=== PATIENT | female | born 1965 | race Caucasian/White ===

== ENCOUNTER 2018-02-17 14:12 | Emergency (ER) | payer OTHER ==
[2018-02-17] MEDS ORDERED: DEXAMETHASONE SOD PHOSPHATE 10 MG/ML 1 ML VIAL IM STA (16:41)
[2018-02-17] MEDS ORDERED: HYDROcodone/APAP 5-325MG 1 EACH TAB PO STA (16:41)
--- NOTE | 2018-02-17 17:05 | ED ---
General Adult HPI - General Chief complaint: Extremity Problem,Nontraumatic Stated complaint: leg & foot numbness Time Seen by Provider: 02/17/18 16:09 Source: patient, RN notes reviewed, old records reviewed Mode of arrival: ambulatory Limitations: no limitations - History of Present Illness Initial comments: This is a 52-year-old female to the ER for evaluation. She does presents today for evaluation regards to right foot pain right leg leg pain, neurological pain. Patient has history of lumbar disease scoliosis pop discs. Symptoms began during long [place] ride and [place] Patient states that during the ride she began to have severe right leg pain. The pain is acute upper right leg alone is improved now. Patient denies any trauma. No loss of bowel or bladder. - Related Data Home Medications Medication Instructions Recorded Confirmed Acetaminophen [Tylenol Extra 1,000 mg PO Q6H PRN 02/17/18 02/17/18 Strength] Albuterol Inhaler [Ventolin Hfa 1 - 2 puff INHALATION RT-Q6H PRN 02/17/18 Inhaler] Benazepril/Hydrochlorothiazide 1 tab PO DAILY 02/17/18 02/17/18 [Lotensin Hct 20-25 mg Tablet] Levothyroxine Sodium [Synthroid] 50 mcg PO DAILY 02/17/18 02/17/18 Loratadine [Claritin] 10 mg PO DAILY 02/17/18 02/17/18 Allergies Allergy/AdvReac Type Severity Reaction Status Date / Time bacitracin Allergy Rash/Hives Verified 02/17/18 16:10 [From Neosporin ([id number])] bee venom protein (honey bee) Allergy Swelling Verified 02/17/18 16:10 dextrose [From Emetrol] Allergy Rash/Hives Verified 02/17/18 16:10 fructose [From Emetrol] Allergy Rash/Hives Verified 02/17/18 16:10 neomycin Allergy Rash/Hives Verified 02/17/18 16:10 [From Neosporin ([id number])] phosphoric acid,diluted Allergy Rash/Hives Verified 02/17/18 16:10 [From Emetrol] polymyxin B Allergy Rash/Hives Verified 02/17/18 16:10 [From Neosporin ([id number])] ciprofloxacin [From Cipro] AdvReac Nausea & Verified 02/17/18 16:10 Vomiting sulfamethoxazole AdvReac Nausea & Verified 02/17/18 16:10 [From Bactrim] Vomiting trimethoprim [From Bactrim] AdvReac Nausea & Verified 02/17/18 16:10 Vomiting Review of Systems ROS Statement: Those systems with pertinent positive or pertinent negative responses have been documented in the HPI. ROS Other: All systems not noted in ROS Statement are negative. Past Medical History Past Medical History: Asthma, Hypertension, Thyroid Disorder Additional Past Medical History / Comment(s): chronic back pain/issues, interstitial cystitis, IBS, hiatial hernia, History of Any Multi-Drug Resistant Organisms: None Reported Past Surgical History: Back Surgery, Bladder Surgery, Cholecystectomy, Hysterectomy, Tonsillectomy Additional Past Surgical History / Comment(s): plantar faciatis surgery on right foot, vaginal sling Past Psychological History: Anxiety Smoking Status: Never smoker Past Alcohol Use History: None Reported Past Drug Use History: None Reported General Exam - General Exam Comments Initial Comments: Pulses are equal bilaterally, +2 Limitations: no limitations General appearance: alert, in no apparent distress Head exam: Present: atraumatic, normocephalic, normal inspection Eye exam: Present: normal appearance, PERRL, EOMI. Absent: scleral icterus, conjunctival injection, periorbital swelling ENT exam: Present: normal exam, mucous membranes moist Neck exam: Present: normal inspection. Absent: tenderness, meningismus, lymphadenopathy Respiratory exam: Present: normal lung sounds bilaterally. Absent: respiratory distress, wheezes, rales, rhonchi, stridor Cardiovascular Exam: Present: regular rate, normal rhythm, normal heart sounds. Absent: systolic murmur, diastolic murmur, rubs, gallop, clicks GI/Abdominal exam: Present: soft, normal bowel sounds. Absent: distended, tenderness, guarding, rebound, rigid Extremities exam: Present: normal inspection, full ROM, normal capillary refill. Absent: tenderness, pedal edema, joint swelling, calf tenderness Back exam: Present: normal inspection Neurological exam: Present: alert, oriented X3, CN II-XII intact Psychiatric exam: Present: normal affect, normal mood Skin exam: Present: warm, dry, intact, normal color. Absent: rash Course Vital Signs 02/17/18 02/17/18 14:59 17:50 Temperature 98.4 F Pulse Rate 74 65 Respiratory 18 20 Rate Blood Pressure 138/82 158/96 O2 Sat by Pulse 98 97 Oximetry Medical Decision Making - Medical Decision Making 52 female the ER positive back pain positive right leg sciatica, CT negative for acute disease. No neurological symptoms or cause found. Good pulses in right lower extremity. Patient can be discharged home - Radiology Data Radiology results: report reviewed (CT lumbosacral spine negative for acute significant changes), image reviewed Disposition Clinical Impression: Right leg pain, Chronic back pain, Acute back pain, Sciatica Disposition: HOME SELF-CARE Condition: Good Instructions: Lumbar Radiculopathy (ED), Sciatica (ED) Is patient prescribed a controlled substance at d/c from ED?: No Referrals: Eduar Turner MD [Primary Care Provider] - 1-2 days
[2018-02-17] MEDS ORDERED: MAG HYDROX/AL HYDROX/SIMETH 30 ML, HYOSCYAMINE ELIXIR 10 ML, CIMETIDINE HCL 300 MG, LID... PO STA ×4 (17:53)
--- NOTE | 2018-02-17 17:54 | CT ---
EXAMINATION TYPE: CT lumbar spine wo con DATE OF EXAM: 02/17/2018 5:30 PM COMPARISON: NONE HISTORY: Low back pain and right leg numbness. CT DLP: 1026 mGycm Automated exposure control for dose reduction was used. Unenhanced CT of the lumbar spine was performed. Bone and soft tissue window settings are submitted as well as coronal and sagittal reconstructions. Lumbar vertebra have normal alignment. There is some narrowing and mild spurring at L4-5 and L5-S1 di sc spaces. There is vacuum disc. There is some facet arthropathy. There is mild neural foraminal narr owing bilaterally at L4-5 and L5-S1. There is no lumbar paraspinal mass. There is no compression frac ture. The visualized sacroiliac joints appear intact. I see no focal bone destruction. There is no si gnificant spinal stenosis. IMPRESSION: Spondylotic changes at L4-5 L5-S1 with bilateral neural foraminal narrowing. No significant spinal st enosis. No fracture seen.
--- NOTE | 2018-02-17 17:57 | CT ---
EXAMINATION TYPE: CT sacrum wo con DATE OF EXAM: 02/17/2018 COMPARISON: NONE HISTORY: Low back pain and right leg numbness. CT DLP: 1026 mGycm Automated exposure control for dose reduction was used. FINDINGS: Multiple axial sections were obtained from the level of L5 to the S1 vertebra with no contrast. The segments have normal alignment. There is sacral cyst noted at S3-S4 level. There is slight expans ion of the spinal canal. The sacroiliac joints are intact. I see no fracture. There is a neurostimula tor wire noted on the right side of the sacrum at S4 level. IMPRESSION: SACRAL CYST AT S3-S4. NO FRACTURE SEEN. SPONDYLOSIS NOTED IN THE LOWER LUMBAR SPINE.
[2018-02-17 18:44] VITALS: BP 128/82; PULSE 66; RESP 18; TEMP 97.7
== END 2018-02-17 18:43 | disposition home or self-care (01) ==
LOC: EC 14:12
DX: G89.29 Other chronic pain (principal); M54.31 Sciatica, right side; J45.909 Unspecified asthma, uncomplicated; I10 Essential (primary) hypertension; E07.9 Disorder of thyroid, unspecified; Z79.899 Other long term (current) drug therapy; Z88.1 Allergy status to other antibiotic agents; Z88.8 Allergy status to other drugs, medicaments and biological substances; Z91.030 Bee allergy status; Z98.890 Other specified postprocedural states
CPT/HCPCS: 72131; 72192; 99284; 96372; J1100

== ENCOUNTER → 2018-03-11 | Outpatient (CLI) | payer OTHER ==
[2018-03-11 15:00] VITALS: TEMP 96.7; BMI 38.9
--- NOTE | 2018-03-11 15:47 | P.HPOB ---
History of Present Illness H&P Date: 03/11/18 Chief Complaint: The patient is here for her routine gynecologic exam and mammogram. This is a 52-year-old with an LMP of 2004. She says post KHADAR BSO 2004 for abnormal bleeding and endometriosis. Patient states that has been about one year since her last pelvic exam. She has noticed a small lump in the right breast which started about 1 month ago. She 1st noticed this when she was having some pruritus in the right breast. She has since noticed a small oblong pea sized lump in the right breast. She denies pain. She has gotten regular mammograms and the last one was one year ago. She does have occasional hot flashes which are not as severe as in the past. She previously did use HRT for about 2 years after her hysterectomy. She is otherwise without complaints. Review of Systems The patient's weight has been stable over the last year. She denies respiratory or cardiac problems. G.I.: occasional heartburn. Past Medical History Past Medical History: Asthma, Hypertension, Renal Disease (Proteinuria), Sleep Apnea/CPAP/BIPAP, Thyroid Disorder Additional Past Medical History / Comment(s): chronic back pain/issues, interstitial cystitis, IBS, hiatial hernia, hypoglycemia and sleep apnea. Past [employer] history: she is post-KHADAR BSO for abnormal bleeding and endometriosis. She has no history of STDs. She used ERT for about 2 years after her hysterectomy. History of Any Multi-Drug Resistant Organisms: None Reported Past Surgical History: Back Surgery, Bladder Surgery, Cholecystectomy, Hysterectomy (HKADAR BSO in 2004.), Orthopedic Surgery (Microdiscectomy L4 to 5), Tonsillectomy, Tubal Ligation Additional Past Surgical History / Comment(s): plantar faciatis surgery on right foot, vaginal sling with cystocele and rectocele repairs. Colonoscopy 2016 this was her 2nd one. Past Psychological History: Anxiety Smoking Status: Never smoker Past Alcohol Use History: None Reported Past Drug Use History: None Reported Additional History: She has been since 1988 and is retired. - Past Family History Daughter(s) Family Medical History: Cancer (Appendix) Mother Family Medical History: Cancer (Thyroid), CVA/TIA Additional Family Medical History / Comment(s): Pulmonary embolus Medications and Allergies Home Medications Medication Instructions Recorded Confirmed Type Acetaminophen [Tylenol Extra 1,000 mg PO Q6H PRN 02/17/18 02/17/18 History Strength] Albuterol Inhaler [Ventolin Hfa 1 - 2 puff INHALATION RT-Q6H PRN 02/17/18 History Inhaler] Benazepril/Hydrochlorothiazide 1 tab PO DAILY 02/17/18 02/17/18 History [Lotensin Hct 20-25 mg Tablet] Levothyroxine Sodium [Synthroid] 50 mcg PO DAILY 02/17/18 02/17/18 History Loratadine [Claritin] 10 mg PO DAILY 02/17/18 02/17/18 History Allergies Allergy/AdvReac Type Severity Reaction Status Date / Time bacitracin Allergy Rash/Hives Verified 03/11/18 14:54 [From Neosporin ([id number])] bee venom protein (honey bee) Allergy Swelling Verified 03/11/18 14:54 dextrose [From Emetrol] Allergy Rash/Hives Verified 03/11/18 14:54 fructose [From Emetrol] Allergy Rash/Hives Verified 03/11/18 14:54 neomycin Allergy Rash/Hives Verified 03/11/18 14:54 [From Neosporin ([id number])] phosphoric acid,diluted Allergy Rash/Hives Verified 03/11/18 14:54 [From Emetrol] polymyxin B Allergy Rash/Hives Verified 03/11/18 14:54 [From Neosporin ([id number])] morphine AdvReac Severe Vomiting Unverified 03/11/18 15:04 ciprofloxacin [From Cipro] AdvReac Nausea & Verified 03/11/18 14:54 Vomiting sulfamethoxazole AdvReac Nausea & Verified 03/11/18 14:54 [From Bactrim] Vomiting trimethoprim [From Bactrim] AdvReac Nausea & Verified 03/11/18 14:54 Vomiting Exam - Vital Signs Vital signs: Vital Signs Temp 03/11/18 14:54 96.7 F L Intake and Output 03/11/18 03/11/18 03/11/18 06:59 14:59 22:59 Other: Weight 99.79 kg Blood pressure 140/78, height 5'3", BMI 39.0, temperature 96.7, pulse 70. This is a well-developed well-nourished heavyset white female who is alert and oriented times 3 in no acute distress. HEENT: Within normal limits. NECK: Supple without mass or thyromegaly. CHEST AND LUNGS: Clear to auscultation. HEART: Regular rate and rhythm. BREASTS: Are without mass or discharge. There is mild tenderness at the 12 o' clock position of the right breast. This is the area where she felt a small lump. I am unable to appreciate any masses in this area or in any part of the breasts by my examination. There is no dimpling of the breasts. AXILLARY EXAM: Negative for adenopathy. BACK: Negative for CVA tenderness. ABDOMEN: Soft, nontender, without palpable masses. PELVIC EXAM: External genitalia appears normal without significant atrophy. Vagina appears normal significant atrophy. There is no evidence of prolapse. Bimanual examination is negative for mass or tenderness. RECTAL EXAM: Rectovaginal exam is negative for mass or tenderness and is negative for occult blood. EXTREMITIES: Nontender. IMPRESSION: 1. 52-year-old surgically menopausal female status post KHADAR BSO for benign reasons with normal gynecologic exam. 2. The patient has felt a small breast lump in the right breast at 12 o'clock position without a palpable mass on my exam today. There is minimal tenderness at the 12 o'clock position of the right breast. PLAN: 1. Pap smears have been discontinued. 2. Health breast awareness was discussed. 3. Diagnostic mammogram will be done today. 4. Osteoporosis prevention was discussed. 5. She will return in one year and PRN.
--- NOTE | 2018-03-19 07:56 | MM ---
Reason for exam: clinical finding. Last mammogram was performed 2 years and 7 months ago. History: Patient is postmenopausal. Family history of breast cancer in aunt. Indicated problem(s): lump or thickening and pain in the right breast. Physical Findings: Dr. Mcgrath did not find any significant physical abnormalities on exam. MG 3D Diag Mammo W/Cad LAWRENCE Bilateral CC and MLO view(s) were taken. Prior study comparison: August 09, 2015, mammogram. The breast tissue is heterogeneously dense. This may lower the sensitivity of mammography. There is no discrete abnormality including area of concern. No significant new findings when compared with previous films. These results were verbally communicated with the patient and result sheet given to the patient on 03/11/18. ASSESSMENT: Negative, BI-RAD 1 RECOMMENDATION: Routine screening mammogram of both breasts in 1 year.
== END | disposition home or self-care (01) ==
LOC: WWCWWP 14:14
PROVIDERS: ATTEND Obstetrics & Gynecology
DX: N64.4 Mastodynia (principal); N63.10 Unspecified lump in the right breast, unspecified quadrant; N63.20 Unspecified lump in the left breast, unspecified quadrant
CPT/HCPCS: 77062; 77066